=== PATIENT | female | born 1945 | race Caucasian/White ===

== ENCOUNTER 2016-07-27 20:25 | Inpatient (IN) | payer MEDICARE, OTHER ==
[~2016-07-27] VITALS: Ht 160 cm; Wt 78.9 kg
--- NOTE | ~2016-07-27 | ECH ---
Transthoracic Echocardiography Report (TTE) Demographics Patient Name NIGEL KAY Date of Study 07/28/2016 Patient Number [id number] Visit Number [id number] Date of 1945 Room Number 408 Accession Number [id number] Gender Female Age 71 year(s) Referring Crystal Robbins MD Video Control Operator Elisa Lyles Physician RDCS Physician Interpreting Carie Black Television Production Assistant Physician Supervising Ordering Physician Crystal Robbins MD, MD/P Nurse Stress Carton Liner Conclusions Summary Technically adequate exam. The estimated left ventricular ejection fraction is 60-65%. Mild concentric left ventricular hypertrophy. Diastolic assessment reveals Grade I diastolic dysfunction. Trivial tricuspid regurgitation by color Doppler. Normal pulmonary pressures. Procedure Type of Study TTE procedure:Echo Complete SF. Procedure Date Date: 07/28/2016 Start: 12:19 PM Technical Quality: Adequate visualization Indications:Hypertension. Additional Indications:Hypoxia,Enlarged PA on CT Appropriate Use Criteria: 9 Height: 65 inches Weight: 173.73 pounds BSA: 1.86 m Rhythm: NSR HR: 82 bpm BP: 145/75 mmHg M-Mode/2D Measurements LV Diastolic Dimension: 3.87 cm LV Systolic Dimension: 2.3 cm LV Septum Diastolic: 1.03 cm LV PW Diastolic: 1.04 cm AO Root Dimension: 3.06 cm Cardiac Output: 10.13 l/min LA Dimension: 3.53 cm Cardiac Index: 5.45 l/min*m RV Diastolic Dimension: 3.01 cm LA volume index: 28 ml/m LVOT: 2.18 cm LVOT VTI: 33.11 cm RV Base: 2.6 cm LV Stroke volume: 123.52 ml RV Mid: 1.9 cm LV Stroke volume index: 66.41 ml/m TAPSE: 2.5 cm TDI-S': 12 cm/s Doppler Measurements AV Peak Velocity: 1.7 m/s MV Peak E-Wave: 1.08 m/s AV Peak Gradient: 11.56 mmHg MV Peak A-Wave: 1.11 m/s AV Mean Gradient: 6.33 mmHg MV E/A Ratio: 0.97 LVOT Peak Velocity: 1.62 m/s MV P1/2t: 58.9 msec AV Area (Continuity):4.23 cm MV Deceleration Time: 190.6 msec TR Velocity:2.55 m/s MV Area (PHT): 3.74 cm TR Gradient:26.01 mmHg PV Peak Velocity: 0.98 m/s Estimated RAP:3 mmHg PV Peak Gradient: 3.86 mmHg Estimated RVSP: 29 mmHg Estimated PASP: 29.01 mmHg E' Septal Velocity: 0.07 m/s A' Septal Velocity: 0.11 m/s E' Lateral Velocity: 0.08 m/s A' Lateral Velocity: 0.1 m/s RA Area: 12.14 cm Findings Left Ventricle The left ventricle is normal in size . Mild concentric left ventricular hypertrophy. Diastolic assessment reveals Grade I diastolic dysfunction. Right Ventricle Normal right ventricle structure and function. Left Atrium Normal left atrial size. Right Atrium Normal right atrial size. Mitral Valve Normal mitral valve structure and function. Trivial mitral regurgitation by color Doppler. Aortic Valve Normal aortic valve structure and function. Tricuspid Valve Normal tricuspid valve structure and function. Trivial tricuspid regurgitation by color Doppler. Normal pulmonary pressures. Pulmonic Valve Normal pulmonic valve structure and function. Trivial pulmonic valve regurgitation by color Doppler. Pericardial Effusion No evidence of pericardial effusion. Miscellaneous Visualized portions of the aortic root and ascending aorta appear normal in size. Pleural Effusion No evidence of pleural effusion. Signature
--- NOTE | ~2016-07-27 | CO ---
ADMIT: 07/27/2016 RM/LOC: 413 [facility] MR#: [id number] [address] [id number] [place] [address] Consultation SEX: F AGE: 71 : 1945 DATE OF CONSULTATION: 08/01/2016 ATTENDING PHYSICIAN: Josue Rojas CONSULTING PHYSICIAN: Henry Mc MD The patient was seen over TeleHealth. More than 50% time spent in counseling and coordination of care. SUBJECTIVE: The patient states that she has been doing well and that her feels that she is doing a lot better as well. She denies any current problem with moods. No problems of racing thoughts or feeling hyper. Denies any strange or bizarre experiences. Denies any thoughts the people trying to hurt her or conspire against her in anyway. As per the records from Dr. Cabral, the patient has had some overnight agitation, some delusional thoughts per nursing where she felt that she was being held there against her will. As per the nursing reports from Elissa, the patient's nurse, they have not noticed any behavioral or management problems lately. She has been doing well. No verbal or physical aggression. MENTAL STATUS EXAMINATION: The patient is alert, awake, oriented to time, place and person. She is cooperative with good hygiene and grooming. Appropriately dressed. Good eye contact. No psychomotor abnormalities. No rigidity or tremor. Affect is of normal range and intensity. It is related and appropriate. The mood is euthymic. Speech is fluent and spontaneous. Normal rate. No formal thought disorder. No suicidal or homicidal ideation. No psychosis. Fair insight, fair judgment. No problem with memory and concentration. ASSESSMENT: 1. Bipolar disorder, type 1. Most recent episode, mixed. 2. Adjustment disorder with anxiety. PLAN: At this time, the patient is on Cogentin 1 mg twice daily and trazodone 100 mg once daily, both are very anticholinergic and can contribute to confusion and exacerbation of memory symptoms. So, I would encourage to limit the use of these medications. She is also on Tegretol 200 mg twice daily. ADMIT: 07/27/2016 RM/LOC: 413 [facility] MR#: [id number] 2620 [facility] [address] [place] [phone] [place] [address] Consultation SEX: F AGE: 71 : 1945 Her level was 9 at the time of admission, which is in the therapeutic range and this should be able to help her with her mood stability rather than using lithium, which she was prior to coming to the hospital. She is on Cymbalta 60 mg once day. I will be somewhat concerned about its long-term use because of the possibility of it inducing a manic episode. If the patient does need to be on antidepressant, the recommended medication would be Wellbutrin. The patient is not in acute psychiatric crisis. No acute psychiatric concerns either. Does not meet the criteria for inpatient hospitalization. I will recommend that she be followed by a psychiatric outpatient provider. Thanks for this referral, Dr. Cabral. Henry Mc MD/ bill JOB #: [id number] CC: Josue Rojas, Attending Physician Arden Pollock, Family Physician
--- NOTE | 2016-07-30 01:31 | ER ---
ADMIT: 07/27/2016 RM/LOC: 408 [facility] MR#: [id number] [address] [id number] NIGEL KAY [address] [place], [place] [id number] Emergency Room Report SEX: F AGE: 71 : 1945 DATE: 07/27/2016 See T-sheet for complete H and P. ADDENDUM: HISTORY OF PRESENT ILLNESS: A 71-year-old female, comes in with unsteadiness and falls which have been going on for the past 3 weeks. Her initial fall occurred 3 weeks ago when she struck her head and got a sprain to her left wrist. She had her arm placed in a splint at that time with no fracture, but since then has been having some continued problems with some unsteadiness and some occasional falls. Also, seems like the patient has had some problems with word finding and some very mild confusion, which have been persistent over the past 3 weeks, but maybe a little worse in the past couple days. She was actually seen in the ER for this 2 days ago for complaints of some unsteadiness and falls and had lab workup, which was unremarkable, vital signs were fine at that time, and head CT which was normal. She is to follow up with her primary care physician, but comes in tonight after she had another fall at home when she tripped over a family pet and struck her head on the base of an office chair. She did not lose consciousness, but they came in to get checked out as she has continued to have these falls and some word finding difficulties. PHYSICAL EXAMINATION: Unremarkable other than she had a very small abrasion to her occiput and some very mild aphasia. The rest of her neuro exam was unremarkable and her stroke scale was a 1, and that was for the aphasia. She did, however, have some hypoxia on room air. She has no lung problems at all, was never a smoker. She was between 87% and 89% on room air, when she arrived. She does, however, not state that she has any shortness of breath at baseline, no dyspnea on exertion, no new cough, and no chest pain. She also denies any history of DVT or PE and has no risk factors other than some of these falls, but no swelling or pain into her extremities. EMERGENCY DEPARTMENT COURSE: CBC was normal. Chemistries were normal with a potassium of 3.4, INR was less than 1, BNP was 116, bedside glucose 82, lithium 0.99. ABG on room air showed a pH 7.39, pCO2 of 34.9, a PO2 of 53. CT angio of her chest was negative for PE, but did show some enlarged pulmonary arteries possibly consistent with pulmonary hypertension. CT of her head does show a very small, approximately 0.6 x 0.9 cm parafalcine subdural ADMIT: 07/27/2016 RM/LOC: 408 [facility] MR#: [id number] [address] [place] [phone] [place] [address] Emergency Room Report SEX: F AGE: 71 : 1945 hematoma[address] I notified Dr. Verma, who is on for Neurosurgery, and he looked at the scan and at this point states that no specific further treatment would be necessary for the small subdural. He does state that he would be happy to be consulted if there are any other concerns. I did speak to Dr. Rojas, who is on for [facility], and the patient will be admitted for further workup. IMPRESSION: 1. Subdural hematoma. 2. Confusion. 3. Falls. 4. Hypoxemia. 5. Aphasia. Jamari Nielsen MD/ bill JOB #: [id number] CC: Josue Rojas MD, Attending Physician Arden Pollock PA-C, Family Physician
--- NOTE | 2016-08-01 08:53 | HP ---
ADMIT: 07/27/2016 RM/LOC: 408 [facility] MR#: [id number] [address] [facility] [address] [place] [phone] RIMA MACKEY [address] [place] [address] History and Physical SEX: F AGE: 71 : 1945 DATE OF SERVICE: 07/27/2016 HISTORY OF PRESENT ILLNESS: Ms. Rima Mackey is a 71-year-old female with past medical history significant for CVA approximately 14 years ago, hyperlipidemia, hypertension, GERD, depression, and anxiety, who presented to our [facility] after a ground-level fall this evening. This was witnessed by her , who states that she had the cat run out in front of her and then started to fall before he could capture. He states that she did hit the back of her head. She is being admitted for new hypoxia as well as a subdural hematoma. Ms. Mackey has been under significant amount of stress lately. Her grandson is on the waiting list for a kidney transplant. This causes a distress for Ms. Mackey. Her states that she has not been sleeping normally. It is noted that she is on a starting taper of lithium. The patient thinks that this is for her depressive symptoms. She states that she has had three falls within the last three weeks. The first one occurred when she was climbing the stairs into her mobile home. She got to the top of the stairs and says the next thing she recalled she had fallen face forward. The second fall was approximately two days ago in which she injured her left wrist. X-rays at that time did not reveal fracture but it is currently splinted. Last fall was today and was noted as above. She denies any light headedness previous to the falls. She does not recall any changes in vision or hearing prior to the falls. She denies any sensation of feeling lightheaded or blacking out prior to the falls. She denies any unusual heartbeats or feeling like her heart is racing or jumping from her chest. She does also note that she is short of breath. She said this was new to her upon admission to our emergency room. She tells me that after her stroke approximately 14 years ago, she does not have any residual deficits or weakness anywhere. There has been note that she has been having more difficulties expressing herself recently. She will stumble over words and not know how to say them. She denies any recent illnesses such as head cold or chest cold. She states that she recently got her vision checked approximately one year ago and does this quite regularly. As above, she denies any changes to her vision. PAST MEDICAL HISTORY: 1. CVA 14 years ago, now with some expressive aphasia. 2. Hyperlipidemia. 3. GERD. 4. Depression and anxiety. PAST SURGICAL HISTORY: Significant for cholecystectomy, hysterectomy, and tonsillectomy. HOME MEDICATIONS: Include: 1. Aspirin 325 mg by mouth daily. 2. Juliette 300 mg capsule. She has been taking one tablet twice daily for one week. This was then increased to two tablets at night with one tablet in the morning and then finally increased to two tablets twice daily. ADMIT: 07/27/2016 RM/LOC: 408 [facility] MR#: [id number] [address] [place] [phone] [place] [address] History and Physical SEX: F AGE: 71 : 1945 3. She takes trazodone at night to help with sleep and will take 100 to 200 mg nightly. 4. She also takes benztropine 1 mg b.i.d. 5. Epitol 200 mg doses x2 tablets twice daily. It is about a total of 400 mg twice daily. 6. Omeprazole 20 mg daily. 7. Loratadine 10 mg daily. 8. Duloxetine 60 mg daily. 9. Clonazepam 1 mg in the morning and 1 mg at night as well as 2 mg at night. 10.She also takes lovastatin 20 mg daily. ALLERGIES: SHE IS ALLERGIC TO CODEINE. PAST FAMILY HISTORY: Significant for colon cancer in her grandparents as well as her parents. She states that her father passed of colon cancer at age 70 and also had lung cancer in the setting of being a heavy smoker. She states that her mother also passed from colon cancer at age of 73 and has lung cancer, she thinks too. She states that her siblings have had issues with gallbladders and have had theirs removed. She states that she had a son who passed at age 19 in the setting of having an aneurysm. Her grandson has kidney failure of unknown etiology per the patient and is on the [facility] transplant wait list. REVIEW OF SYSTEMS: A complete review of systems was completed for this encounter and is negative other than noted in the history of present illness. PHYSICAL EXAMINATION: VITAL SIGNS: May include being afebrile, heart rate of 60, blood pressure 152/85, respiration rate of 16, and saturating 92% on 1.5 L nasal cannula. GENERAL: She is alert and oriented to person, place, as well as situation. She does not appear to be in any acute distress. HEENT: She is noted to have a raised bruise on the posterior scalp. There is no step-off. She does have a bit of an abrasion over the skin. Her hearing is intact to finger rub. Her extraocular eye movements are also intact. Her left pupil is slightly more sluggish than her right, but it is reactive. The pupils appear to be equal in size. She does not have any abnormal conjunctiva or sclerae. Her nose is in midline. She does not have drainage from it. Her mouth is moist with no erythema or lesions noted. She does not have any cervical lymphadenopathy noted in her neck. LUNGS: She does have decreased breath sounds throughout, more so noted at the bases. HEART: Regular rate and rhythm. No murmurs, rubs, or gallops detected. ABDOMEN: Soft. It is distended with adiposity. There is no organomegaly. It is nontender. She does have hypoactive bowel sounds at this time. EXTREMITIES: She does have the left wrist in part of the hand in a soft splint. She does have a few ecchymoses noted over her arms and legs. Otherwise, her extremities are atraumatic. She does not have any edema noted. ADMIT: 07/27/2016 RM/LOC: 408 [facility] MR#: [id number] [address] [phone] RIMA MACKEY [address] [place] [address] History and Physical SEX: F AGE: 71 : 1945 She does have cooler peripheral extremities, most notably in the lower extremities. NEURO: Her cranial nerves are intact. As above, she is noted to have a slightly sluggish left pupil compared to the right. She has intact sensation and moderate needs teacher strength as well as lower extremity strength. It is symmetric bilaterally. At times, she is noted to have some word searching difficulties. She is aware of the situation about her. She is able to participate in the history and her information is corroborated by her significant other. PSYCH: She does appear a bit depressed. However, she does have appropriate affect. Her affect is mood congruent. LABORATORY DATA: She has a white count of 4.0, hemoglobin of 13.9, and platelets of 230. Her BMP is significant for potassium at 3.4 and creatinine of 1 with a bicarb of 26. Her proBNP was 116. Her INR was less than 1. Her lithium level is 0.99. ABG is as follows; 7.398, 35, 53, and 21. Her UA is negative and her urine drug screen is also negative. IMAGING: ECG demonstrates sinus bradycardia with borderline left axis deviation. Imaging of her head with a noncontrast CT demonstrates new focal hyperdensity along the falx measuring 9 x 5 mm likely considered to be a subdural hematoma. There is no mass effect. There is no evidence of acute ischemia. She does have mild brain volume loss. Imaging of her cervical spine demonstrates negative cervical spine for acute trauma. She has normal prevertebral soft tissue, but does have some mild degenerative changes without central canal or foraminal stenosis. Her CT scan of her chest demonstrates enlargement of the pulmonary arteries, which can be seen with pulmonary hypertension. No cardiomegaly. No pulmonary emboli. No pleural or pericardial effusion. She does have a right renal cyst noted. ASSESSMENT AND PLAN: Ms. Rima Mackey is a 71-year-old female with past medical history significant for hyperlipidemia and cerebrovascular accident approximately 14 years ago with some expressive aphasia, who has been having more recent falls of unknown etiology and presents to our Emergency Department with a small subdural hematoma as well as new oxygen requirement. On admission, her Stan[place] Coma Scale is 15. Her NIH score is 1. 1. Frequent falls. The etiology of this is unknown at this time. Possible diagnoses include cardiovascular, neurogenic, or metabolic. At this point in time, metabolic seems less likely given her normal BMP and CBC. This cause could be related to her medications. She recently was started on lithium and is on benzodiazepines, which can predispose an individual to falls especially if they are over the age of 65. It could also be mechanical in nature secondary to changes in vision. At this point in time, we will perform an echocardiogram on her in the morning as well as keep her on continuous telemetry and continuous pulse oximetry. We will consider the need for an EEG. At this time, I think it would be del angel to hold the daytime clonazepam and just provide the evening dose if needed. Would rely more on the trazodone for her insomnia. At this time, we will also hold the aspirin. We will also hold deep venous thrombosis ADMIT: 07/27/2016 RM/LOC: 408 [facility] MR#: [id number] [address] [facility] [address] [place] [phone] [address] [place] [address] History and Physical SEX: F AGE: 71 : 1945 prophylaxis in the setting of the subdural hematoma. PT/OT will be consulted as well. The patient was then instructed to consider having her vision checked in the near future as well. 2. Subdural hematoma noted to be 5 x [address] scan. When compared to previous CT scans, this is new. Most likely secondary to her recent falls. We will hold the aspirin as well as deep venous thrombosis prophylaxis at this point in time. Neurosurgery has been consulted and feels there is no surgical intervention to be offered at this point in time. They stated that they will not follow at this time, but will be more than ready to assist and should they be needed in the future. We will continue to monitor the patient closely. If she has any changes in respiratory status or neurologic signs, then first step would be repeat CT scan without contrast. 3. Hypoxia. The patient is noted to have some evidence of pulmonary hypertension on her CT scan. This is not the gold standard for a diagnosis of pulmonary hypertension. Echocardiogram in the morning will give a more accurate for trial of her pulmonary arterial systolic pressures. The etiology of her hypoxia is unknown at this time. She does not have any developing pneumonia. She does not have any other signs or symptoms of pulmonary compromise on her CT scan. At this point in time, we will keep her on continuous pulse oximetry with goal of SpO2 is greater than 88% and ideally, greater than 93%. 4. Hyperlipidemia. We will continue her on the lovastatin 20 mg p.o. daily. Consider increasing this to a higher dose given that she has had a history of cerebrovascular accident. 5. Depression, complicated by anxiety as well as insomnia. We will continue the trazodone 100 mg p.o. at bedtime for sleep. We will also continue the benztropine as well as the Epitol and duloxetine. We will provide the clonazepam at night only. We will consider discontinuing the lithium at this point in time and consider starting something like BuSpar for her anxiety and depression. 6. Gastroesophageal reflux disease. We will continue the omeprazole 20 mg daily. 7. Deep venous thrombosis prophylaxis. We will hold her deep venous thrombosis prophylaxis at this point in time in the setting of an acute subdural hematoma. 8. Respiratory prophylaxis. Incentive spirometry could be ordered to assist with her pulmonary function. Jessica Rice MD Resident / Josue Rojas MD / bill JOB #: [id number] CC: Josue Rojas, Attending Physician Arden Pollock, Family Physician
[2016-08-02] MEDS ORDERED: DESYREL DPS100 MG PO (15:31)
[2016-08-02] MEDS ORDERED: PRILOSEC DPS20 MG PO (15:32)
[2016-08-02] MEDS ORDERED: COGENTIN DPS1 MG PO (15:32)
[2016-08-02] MEDS ORDERED: LORATADINE10 MG PO (15:32)
[2016-08-02] MEDS ORDERED: CYMBALTA DPS60 MG PO (15:33)
[2016-08-02] MEDS ORDERED: NORVASC5 MG PO (15:33)
[2016-08-02] MEDS ORDERED: LIPITOR40 MG PO (15:33)
[2016-08-02] MEDS ORDERED: KLONOPIN2 MG PO (15:33)
[2016-08-02] MEDS ORDERED: TEGRETOL DPS200 MG PO (15:33)
[2016-08-02] MEDS ORDERED: COLACE-DPS100 MG PO (15:34)
[2016-08-02] MEDS ORDERED: TYLENOL DPS325 MG PO (15:34)
[2016-08-02] MEDS ORDERED: MAALOX DPS30 ML PO (15:34)
--- NOTE | 2016-08-07 07:29 | DS ---
ADMIT: 07/27/2016 RM/LOC: [address] [facility] MR#: [id number] [facility] [address] [place], [place] [id number] [address] [place] [address] Discharge Summary SEX: F AGE: 71 : 1945 ADMISSION DATE: 07/27/2016 DISCHARGE DATE: 08/01/2016 DISCHARGE DIAGNOSES: 1. Accidental fall and gait imbalance likely secondary to medication side effects. 2. Closed head injury with small subdural hematoma resolving. 3. Nocturnal hypoxemia. 4. Bipolar disorder with anxiety and delusional thoughts. 5. Hypertension. CONSULTATIONS: Psychiatry. PROCEDURES: None. REASON FOR ADMISSION: A very pleasant, 71-year-old female normally seen in [place], [place]. Presents to [facility] emergency room on the day of admission after having a fall and a head injury. For complete details, please see H and P dictated on the day of admission. HOSPITAL COURSE: At the time of admission, the patient was placed in a telemetry bed, and she was watched closely. Medication adjustments were made. Psychiatry was consulted. She had been noted to have a small subdural hematoma on CT scan. This was followed with serial CT scans that did show improvement. The patient did have some agitation and some delusional thoughts, and Psychiatry, as mentioned, was seen. Medication adjustments were made. They really felt like this was bipolar disorder. As mentioned, she continued to be agitated and had continued to have some mild headache. She underwent an MRI that showed once again the subdural was resolving, had no other intraparenchymal lesions or concerns noted on the imaging. She was seen by PT and OT. She was noted to initially have some mild hypoxemia. This was thought to be be medication side effect from hypoventilation. She underwent a trend ox and required a couple liters overnight. That was set up for her at home. She also underwent a CT scan and bedside pulmonary function tests, all of which were normal. Plans for outpatient sleep study were also discussed. She was noted to be hypertensive as an inpatient, and she was started on some Norvasc, and that was titrated and came under good control. As mentioned, the patient ambulated and ate. She had no headache. Was stable from a mood standpoint, and Psychiatry felt she was okay to be discharged on 08/01, and I agreed. ADMIT: 07/27/2016 RM/LOC: [address] [facility] MR#: [id number] [address] [id number] [place] [address] Discharge Summary SEX: F AGE: 71 : 1945 DISCHARGE MEDICATION LIST: Found on her discharge medication sheet. DISCHARGE DIET: As tolerated. FOLLOWUP: She will have followup with Arden Pollock PA-C, her primary care provider in [place], but was also encouraged to make appointments with Psychiatry to help with medication management given her bipolar disorder. Was also encouraged to have a sleep study scheduled and continue with nocturnal oxygen until the results of that sleep study return. Tayo Cabral MD/ leroy JOB #: [id number] CC: Josue Rojas MD, Attending Physician Arden Pollock PA-C, Family Physician Arden Pollock PA-C
== END 2016-08-01 16:58 | disposition home or self-care (01) | DRG 87 ==
LOC: ER 20:25 → 4PCU 21:58
PROVIDERS: ADMIT Internal Medicine
DX: S06.5X0A Traumatic subdural hemorrhage without loss of consciousness, initial encounter (principal); I27.2 Other secondary pulmonary hypertension; I69.320 Aphasia following cerebral infarction; W18.30XA Fall on same level, unspecified, initial encounter; R09.02 Hypoxemia; R26.89 Other abnormalities of gait and mobility; T50.905A Adverse effect of unspecified drugs, medicaments and biological substances, initial encounter; F31.9 Bipolar disorder, unspecified; F22 Delusional disorders; F43.20 Adjustment disorder, unspecified; F41.9 Anxiety disorder, unspecified; E78.5 Hyperlipidemia, unspecified; I10 Essential (primary) hypertension; K21.9 Gastro-esophageal reflux disease without esophagitis; Z79.82 Long term (current) use of aspirin; N28.1 Cyst of kidney, acquired; R29.6 Repeated falls; G47.00 Insomnia, unspecified